=== PATIENT | male | born 1965 | race Hispanic/Latino ===

== ENCOUNTER 2018-02-02 16:59 | Inpatient (IN) | payer BC ==
[~2018-02-02] VITALS: Ht 185.4 cm; Wt 127.0 kg
[~2018-02-02 16:59] MED LIST: BYETTA5 MCG/0.02 SQ; CLONIDINE HCL0.1 MG PO; COUMADIN3 MG PO; HYDROCHLOROTHIA25 MG PO; LOSARTAN POTAS100 MG PO
--- OUTSIDE RECORDS SUMMARY | 2018-02-02 17:03 | XMS REPORT ---
Author Author [facility] Address Unknown Phone Unavailable Care Team Providers Care Health Support Specialist Name Role Phone REINALDO LEDBETTER Unavailable Unavailable Problems This patient has no known problems. Allergies, Adverse Reactions, Alerts This patient has no known allergies or adverse reactions. Medications This patient has no known medications. Results Test Description Test Time Test Comments Text Results Atomic Results Result Comments US RENAL RETROPERITONEAL COMP [place] [address] Patient Name: RENY LARSEN MR #: [id number] : 1965 Age/Sex: 51/M Req #: [id number] [facility] Physician: REINALDO LEDBETTER MD Ordered by: CUATE BORREGO MD Report #: [id number] Location: [facility] Room/Bed: [facility] Procedure: [id number] US/US RENAL RETROPERITONEAL COMP Exam Date: 12/31/16 Exam Time: 1435 REPORT STATUS: Signed PROCEDURE: US RETROPERITONEAL ( KIDNEY ). COMPARISON: None. INDICATIONS: DAVID TECHNIQUE: Montejo-scale and color sonographic images of the bilateral kidneys and bladder where obtained in transverse and longitudinal planes. FINDINGS: RIGHT KIDNEY: 12.4 x 6.2 x 6.2 cm, cortex 2.4 cm Cysts: None Solid masses: None Stones: None Hydronephrosis: None Echogenicity: Normal LEFT KIDNEY: 13.9 x 7.6 x 7.2 cm, cortex 3.2 cm Cysts: None Solid masses: None Stones: None Hydronephrosis: None Echogenicity: Normal Bladder: Normal CONCLUSION: Unremarkable renal ultrasound exam. Dictated by: Jamel Stovall M.D. on 12/31/2016 at 17:17 Electronically approved by: Jamel Stovall M.D. on 12/31/2016 at 17:17 Dictated By: JAMEL STOVALL MD 16 Transcribed By: NANDA on 12/31/161716 COPY TO: CUATE BORREGO MD MRI FOOT RIGHT WO [place] [address] Patient Name: RENY LARSEN MR #: [id number] : 1965 Age/Sex: 51/M Req #: [id number] Adm Physician: REINALDO LEDBETTER MD Ordered by: JULIANNA DALLAS DPZofia Report #: [id number] Location: [facility]/SURG2 Room/Bed: [facility] Procedure: [id number] MRI/MRI FOOT RIGHT WO Exam Date: 12/29/16 Exam Time: 1500 REPORT STATUS: Signed MRI of the right forefoot without contrast. History: Infection. Abscess. Ulcer. Decreased range of motion. Technique: Multiplanar multisequence MRI of the foot without contrast Comparison: None Findings: There is skin ulceration and skin thickening with abnormal soft tissue edema at the plantar aspect of the foot at the level of the distal first metatarsal. There is an ill-defined fluid collection the region best seen on series 3 image 17, series 8 image 6 and series 6 image 23. This is likely due to a phlegmon/early abscess. There is abnormal bone marrow edema in the underlying tibial sesamoid bone best seen on series 3 image 16 and series 8 image 19. There is a small effusion and mild synovitis at the first metatarsophalangeal joint. There is mild bone marrow edema in the proximal great toe best seen on series 8 image 10. Scattered degenerative changes are seen about the remaining visualized osseous structures. There is mild diffuse edema throughout the musculature. No ligamentous or tendon tear is seen. Impression: Findings consistent with skin ulceration, cellulitis and likely phlegmon/developing abscess at the plantar aspect of the foot at the level of the distal first metatarsal. There is abnormal bone marrow edema in the tibial sesamoid bone worrisome for early osteomyelitis. Additionally, there is a small effusion and synovitis at the first metatarsophalangeal joint which could be due to early septic arthritis. There is mild bone marrow edema in the proximal great toe which is thought to be stress related. Signed by: Dr. Shima Purcell M.D. on 12/29/2016 4:01 PM Dictated By: SHIMA PURCELL MD, MD 1601 Transcribed By: HARPREET on 12/29/16 1601 COPY TO: JULIANNA DALLAS DPZofia BONE SCAN, 3 PHASE [place] [address] Patient Name: RENY LARSEN MR #: [id number] : 1965 Age/Sex: 51/M Req #: [id number] Adm Physician: REINALDO LEDBETTER MD Ordered by: LUIS FERNANDO NEAL MD Report #: [id number] Location: MED/SURG2 Room/Bed: [facility] Procedure: [id number] NM/BONE SCAN, 3 PHASE Exam Date: 12/29/16 Exam Time: 1100 REPORT STATUS: Signed Bone Scan, three-phase - feet and ankles Reason for exam: 2-3 weeks ago blister formed on bottom of right foot near ball of foot and is now infected. Patient is diabetic. Radiopharmaceutical: Tc- 99m MDP 26.7 mCi Comparison: MRI right foot 12/29/2016 Following intravenous administration of the radiopharmaceutical, dynamic flow and immediate blood pool images of the feet and ankles followed by 3-hour delayed spot images were obtained. Flow and blood pool images show diffuse markedly increased tracer in the right foot and ankle compared to the left with focal accumulation of tracer at the right 1st metatarsal head. The delayed images show diffuse mildly increased tracer in the soft tissue of the right foot compared to the left with few scattered foci of mildly increased tracer activity in the feet bilaterally consistent with degenerative changes but no focal increased tracer in the right great toe or right 1st metatarsal. Impression: Cellulitis in the right foot. No evidence of osteomyelitis in the right great toe or right 1st metatarsal. Signed by: Dr. Chris Feldman M.D. on 12/29/2016 7:01 PM Dictated By: CHRIS FELDMAN MD 00 Transcribed By: HARPREET on 12/29/161900 COPY TO: LUIS FERNANDO NEAL MD [facility] ([place] [address] Patient Name: RENY LARSEN MR #: [id number] : 1965 Age/Sex: 51/M Req #: [id number] Adm Physician: Ordered by: MONICO STEVEN Report #: [id number] Location: ER Room/Bed: Procedure: [id number] DX/CHEST SINGLE (PORTABLE) Exam Date: 12/28/16 Exam Time: 1245 REPORT STATUS: Signed PROCEDURE: A single AP view of the chest. COMPARISON: None. INDICATIONS: INFECTION OF FOOT FINDINGS: Lines/tubes: None. Lungs: The lungs are mildly hypo-inflated, but grossly clear. There is no evidence of pneumonia or pulmonary edema. Pleura: There is no pleural effusion or pneumothorax. Heart and mediastinum: The heart and the mediastinum are unremarkable. Bones: No acute bony abnormality. IMPRESSION: 1. No acute cardiopulmonary abnormalities Nakia Scott M.D. Dictated by: Nakia Scott M.D. on 12/28/2016 at 13:18 Electronically approved by: Nakia Scott M.D. on 12/28/2016 at 13:18 Dictated By: NAKIA SCOTT MD 131 Transcribed By: NANDA on 12/28/16 1318 COPY TO: MONICO STEVEN FOOT RIGHT COMPLETE [place] [address] Patient Name: RENY LARSEN MR #: [id number] : 1965 Age/Sex: 51/M Req #: [id number] Adm Physician: Ordered by: MONICO STEVEN Report #: [id number] Location: ER Room/Bed: Procedure: [id number] DX/FOOT RIGHT COMPLETE Exam Date: 12/28/16 Exam Time: 1245 REPORT STATUS: Signed PROCEDURE: X-RAY RIGHT FOOT, COMPLETE COMPARISON: None. INDICATIONS: INFECTION OF FOOT , right first toe wound, swelling, drainage FINDINGS: Mild osteopenia, which limits evaluation of bony structures. No cortical erosion or destruction. No acute displaced fracture or dislocation. Large inferior calcaneal enthesophyte. Degenerative changes in the hindfoot/midfoot joints. Mild soft tissue swelling in the first toe and dorsal aspect of the foot. No soft tissue defect identified CONCLUSION: Soft tissue swelling in the dorsal aspect of the foot and first toe, without soft tissue defect or underlying cortical erosion or destruction to suggest osteomyelitis. Nakia Scott M.D. Dictated by: Nakia Scott M.D. on 12/28/2016 at 13:23 Electronical ly approved by: Nakia Scott M.D. on 12/28/2016 at 13:44 Dictated By: NAKIA SCOTT MD 1344 Transcribed By: NANDA on 12/28/16 1344 COPY TO: MONICO STEVEN
[2018-02-02] MEDS ORDERED: VANCOMYCIN 1GM/NS 250 ML 250 ML IV STA (17:32)
[2018-02-02 17:48] LABS: BASOPHILS # (AUTO) 0.1 (0.0-0.1); BASOPHILS % 0.4 % (0.0-1.0); EOSINOPHILS # (AUTO) 0.6 (0.0-0.4); EOSINOPHILS % 4.9 % (0.0-6.0); HEMATOCRIT 36.2 % (38.2-49.6); HEMOGLOBIN 11.8 g/dL (14.0-18.0); LYMPHOCYTES # (AUTO) 1.7 (1.0-3.2); MEAN CORPUSCULAR HEMOGLOBIN 28.4 pg (28-32); MEAN CORPUSCULAR HGB CONC 32.6 g/dL (31-35); MONOCYTES # (AUTO) 0.6 (0.2-0.8); MONOCYTES % 4.8 % (4.4-11.3); NEUTROPHILS # (AUTO) 9.1 (2.1-6.9); NEUTROPHILS % 75.3 % (38.7-80.0); PLATELET COUNT 497 x10e3/uL (140-360); RED BLOOD COUNT 4.16 x10e6/uL (4.3-5.7); RED CELL DISTRIBUTION WIDTH 12.6 % (11.7-14.4)
[2018-02-02 17:55] LABS: INR 0.99
[2018-02-02 17:56] LABS: PARTIAL THROMBOPLASTIN TIME 37.7 seconds (23.8-35.5)
[2018-02-02 18:05] LABS: ALANINE AMINOTRANSFERASE 53 IU/L (0-55); ALBUMIN 2.6 g/dL (3.5-5.0); ALBUMIN/GLOBULIN RATIO 0.5 (0.8-2.0); ALKALINE PHOSPHATASE 104 IU/L (40-150); ANION GAP 13.1 mmol/L (8-16); BLOOD UREA NITROGEN 25 mg/dL (7-26); BUN/CREATININE RATIO 29 (6-25); CALCIUM 9.3 mg/dL (8.4-10.2); CARBON DIOXIDE 24 mmol/L (22-29); CHLORIDE 103 mmol/L (98-107); CREATININE, SERUM 0.87 mg/dL (0.72-1.25); EST GLOMERULAR FILTRATION RATE > 60 ML/MIN (60-); GLUCOSE 191 mg/dL (74-118); POTASSIUM 4.1 mmol/L (3.5-5.1); SODIUM 136 mmol/L (136-145)
--- NOTE | 2018-02-02 19:05 | Diagnostic Imaging Report ---
RIGHT FOOT X-RAY - 3 VIEWS HISTORY: ^Rule out osteomyelitis ^[id number] ^1805 COMPARISON: None available. FINDINGS: Bones: No acute displaced fracture. Osseous alignment is within normal limits. Joints: Mild to moderate degenerative changes throughout the foot. Mild cortical irregularity within the medial aspect of the distal right first metatarsal. Calcaneal enthesopathy within the plantar aspect of the calcaneus with age-indeterminate fracture of the osteophyte. Soft tissues: Soft tissue swelling along the right first digit. IMPRESSION: Soft tissue swelling along the first digit with mild cortical erosion of the distal first metatarsal. This may represent osteomyelitis. Consider MRI right foot with and without contrast. Signed by: Dr. Skye Dietrich M.D. on 02/02/2018 7:02 PM
[2018-02-02] MEDS ORDERED: CLONIDINE HCL 0.1 MG TAB PO ONE (19:15)
[2018-02-02 19:19] LABS: BILIRUBIN,URINE NEGATIVE (NEGATIVE); CLARITY,URINE CLEAR (CLEAR); COLOR,URINE YELLOW (YELLOW); KETONES,URINE NEGATIVE (NEGATIVE); LEUKOCYTE ESTERASE ,URINE NEGATIVE (NEGATIVE); NITRITE,URINE NEGATIVE (NEGATIVE); PROTEIN,URINE DIPSTICK 2+ (NEGATIVE); URINE UROBILINOGEN 0.2 mg/dL (0.2 - 1)
--- NOTE | 2018-02-02 19:23 | NUR ---
RECEIVED BEDSIDE REPORT FROM AUGUST QUIROZ DAY SHIFT NURSE.
[2018-02-02 19:38] LABS: BACTERIA,URINE MODERATE /HPF; EPITHELIAL CELLS,URINE FEW /LPF; RBC,URINE 21-50 /HPF (0-5); WBC,URINE (MAN) 0-5 /HPF (0-5)
[2018-02-02] MEDS ORDERED: DEXTROSE 50% SYRINGE 50 ML IV PRN (20:45)
[2018-02-02] MEDS ORDERED: PIPER-TAZ 3.375 GM 50 ML IV SCH (21:00)
[2018-02-02] MEDS ORDERED: ATORVASTATIN CA10 MG PO (21:13)
[2018-02-02] MEDS: INSULIN REGULAR, HUMAN 100 UNIT/1 ML 3ML VIAL SQ SCH (21:25)
[2018-02-02] MEDS ORDERED: CLONIDINE HCL 0.1 MG TAB PO SCH (22:00)
--- NOTE | 2018-02-02 22:10 | NUR ---
MEAL GIVEN TO PT.
[2018-02-02] MEDS ORDERED: PROMETHAZINE 12.5MG/ NACL 0.9% 12.5 MG/50 ML BAG IV ONE (22:45)
[2018-02-03] MEDS ORDERED: DEXTROSE 50% SYRINGE 50 ML IV PRN
--- NOTE | 2018-02-03 01:35 | NUR ---
PLACE PT IN HOSPITAL BED. BED IS LOCKED AND IN LOW POSITION, SIDE RAILS ARE UP. CALL LIGHT IS IN REACH. NO DISTRESS NOTED.
[2018-02-03] MEDS ORDERED: TOUJEO SOLOSTAR SC (03:51)
[2018-02-03] MEDS ORDERED: NOVOLOG100 UNITS1 SQ (03:51)
[2018-02-03] MEDS ORDERED: VICTOZA 2-0.6 MG/0.1 SQ (03:51)
--- NOTE | 2018-02-03 06:16 | History and Physical ---
REASON FOR ADMISSION: Right foot osteomyelitis. HISTORY OF PRESENT ILLNESS: The patient is a 52-year-old gentleman with history of diabetes and hypertension, who presented with right foot infection that on the x-ray shows to have evidence of osteomyelitis. He is being admitted for further evaluation and treatment. PAST MEDICAL HISTORY: Significant for hypertension and diabetes. MEDICATIONS: See MAR. ALLERGIES: NONE. SOCIAL HISTORY: Nonsmoker, nondrinker. FAMILY HISTORY: Hypertension. PHYSICAL EXAMINATION VITAL SIGNS: Temperature 98.6, blood pressure 136/74, pulse 74, saturation 96% on room air. GENERAL: In no apparent distress, lying in bed. NECK: Supple. No lymphadenopathy. LUNGS: Clear to auscultation bilaterally. CARDIOVASCULAR: Regular rate and rhythm. ABDOMEN: Good bowel sounds, soft, nontender. EXTREMITIES: No clubbing or cyanosis. Right foot has got evidence of redness around the toe area. NEUROLOGICAL: Nonfocal. ASSESSMENT AND PLAN 1. Right foot osteomyelitis. We will continue with intravenous antibiotics and consult Dr. Frankel as well as Dr. Gannon, his beauty operator. 2. Diabetes. Continue with current care and monitoring. 3. Hypertension. Continue with current care and monitoring. 4. Leukocytosis. Continue to monitor her. Please see hospital chart for full details. Job#: [id number] DONNELL
[2018-02-03] MEDS ORDERED: HYDRALAZINE HCL 20 MG/ML VIAL IV PRN (07:00)
--- NOTE | 2018-02-03 07:05 | NUR ---
REPORT GIVEN TO AUGUST SR DAY SHIFT NURSE.
--- NOTE | 2018-02-03 07:10 | NUR ---
WALKING ROUNDS COMPLETED WITH AUGUST SCHWARTZ; PT UPDATED ON PLAN OF CARE. PT CURRENTLY RESTING IN BED AT THIS TIME WITH NO COMPLAINTS ;BED LOW AND LOCKED, SIDE RAILS UP X2, CALL LIGHT IN REACH; WILL CONTINUE TO MONITOR
[2018-02-03] MEDS: INSULIN REGULAR, HUMAN 100 UNIT/1 ML 3ML VIAL SQ SCH ×4 (07:47→21:00)
[2018-02-03] MEDS: INSULIN LISPRO 100 UNIT/1 ML 3ML VIAL SQ SCH ×3 (08:45→17:27)
[2018-02-03] MEDS: PIPER-TAZ 3.375 GM 50 ML IV SCH ×3 (08:51→18:00)
[2018-02-03] MEDS: ATORVASTATIN 10 MG TAB PO SCH ×2 (08:51→21:52)
[2018-02-03] MEDS: HYDROCHLOROTHIAZIDE 25 MG TAB PO SCH (08:51)
[2018-02-03] MEDS: LOSARTAN POTASSIUM 100 MG TAB PO SCH (08:51)
[2018-02-03] MEDS: CLONIDINE HCL 0.1 MG TAB PO SCH ×2 (08:51→21:52)
--- NOTE | 2018-02-03 08:53 | NUR ---
CALLED PHARMACY FOR JOSE M HOUSER
[2018-02-03] MEDS: VANCOMYCIN 1GM/NS 250 ML 250 ML IV SCH ×2 (09:50→20:00)
[2018-02-03] MEDS: EXENATIDE SQ SCH (12:31)
--- NOTE | 2018-02-03 12:40 | NUR ---
pt transported to by radiology for mri of foot
--- NOTE | 2018-02-03 13:09 | Consultation ---
DATE OF CONSULTATION: February 03, 2018 PODIATRY CONSULTATION REASON FOR CONSULTATION: Right foot infection. HISTORY OF PRESENT ILLNESS: Mr. Bustillos is a pleasant male, 52 years of age, with unfortunate recurrence of diabetic foot complication. He had in the past significant right foot infection which led to OR debridement and substantial long-term wound care, which ultimately led to wound healing. Unfortunately recently, within the past several weeks, has developed a secondary lesion adjacent to the previous infection site, which within the past 2 weeks got infected. Tried p.o. antibiotics. Tried local wound care. Educated on offloading, which he was unsuccessful in doing, and subsequently due to worsening at this point, I recommended him to present to the ED for further evaluation and inpatient management. PAST MEDICAL HISTORY 1. Diabetes, diabetic peripheral neuropathy. 2. Osteomyelitis. 3. Diabetic foot complications. ALLERGIES: NO KNOWN DRUG ALLERGIES. MEDICATIONS: Please see MAR for current medication list. FAMILY HISTORY: Noncontributory. SOCIAL HISTORY: Noncontributory. SURGICAL HISTORY: Right foot OR debridement. PHYSICAL EXAMINATION GENERAL: AO x3, NAD. VITAL SIGNS: 98.4 temperature, pulse is 66, respiratory rate 18, blood pressure is 116/68. HEENT: Normocephalic, atraumatic, anicteric. ABDOMEN: Soft, nontender, nondistended. RESPIRATORY: Symmetrical expansion. No distress. PSYCHIATRIC: Normal affect. EXTREMITIES: Significant erythema, edema to the right foot. Forefoot particularly involved. He has contracted digits, has prominent ball of foot consistent with plantarflexed metatarsal heads. X-rays reveal osteomyelitis. LABORATORY DATA: He is leukocytotic. Hemoglobin A1c ordered. ASSESSMENT: Diabetic patient, diabetic peripheral neuropathy with diabetic foot infection, diabetic ulceration, and diabetic foot complications. PLAN: Further workup necessary. Need MRI. Needs IV antibiotics. Needs local wound care. Needs offloading. Further recommendations to follow. At risk patient for perhaps needing transmetatarsal amputation, pending clinical course. I would like to thank Dr. Hull for medical management and other consultants. Job#: [id number] SUNIL
--- NOTE | 2018-02-03 14:22 | Diagnostic Imaging Report ---
TECHNIQUE: Magnetic resonance imaging of the RIGHT foot was performed WITHOUT injected contrast. HISTORY: Right foot pain, evaluate for infection COMPARISON: None available. DISCUSSION: Soft tissue ulceration plantar forefoot with sinus tract extending to the second metatarsal head with septic arthritis of the second MTP joint and osteomyelitis of the second metatarsal and phalanges. Soft tissue ulceration plantar forefoot with sinus tract extending to the proximal phalanx of the hallux with septic arthritis of the first MTP joint and osteomyelitis of the first metatarsal and proximal phalanx. Adjacent medial plantar forefoot soft tissue phlegmon/ill-defined abscess. Bone marrow edema within the third through fifth metatarsals, likely stress reaction with insufficiency fracture across the fourth metatarsal base. IMPRESSION: Soft tissue ulceration and sinus tracts extending to the first and second MTP joints with septic arthritis and osteomyelitis of the first and second metatarsals and phalanges. Third through fifth metatarsal bone marrow edema with insufficiency fracture at the fourth metatarsal base. Signed by: Dr. Frederick Montana M.D. on 02/03/2018 2:19 PM
[2018-02-03] MEDS ORDERED: CEFEPIME HCL 2 GM VIAL IV SCH (15:45)
[2018-02-03] MEDS: CEFEPIME 2 GM/NS 0.9% 100 ML 100 ML IV SCH (16:09)
--- NOTE | 2018-02-03 16:10 | Consultation ---
DATE OF CONSULTATION: REASON FOR CONSULTATION: Infection of the right foot, osteomyelitis. HISTORY OF PRESENT ILLNESS: This patient who is a 52-year-old male with history of diabetes mellitus, history of hypertension, history of neuropathy, Charcot joint, comes in with right foot redness and swelling. He has been seeing his physician. Took some more antibiotic as an outpatient without any improvement. The patient had debridement, long-term wound care before. The patient, in spite of oral antibiotic, his foot was getting progressively worse. X-ray documented osteo so patient is being admitted for debridement. Infectious disease was asked to see the patient. The patient is currently lying in bed comfortably. PAST MEDICAL HISTORY: Diabetes mellitus, neuropathy. PAST SURGICAL HISTORY: Debridement of the foot. ALLERGIES: NKA. SOCIAL HISTORY: There is no smoking, drug abuse, alcohol abuse. FAMILY HISTORY: Diabetes mellitus. REVIEW OF SYSTEMS HEENT: Negative. CARDIAC: Negative. : Negative. SKIN: There is no other rash. LABORATORY DATA: White count 12.6, hemoglobin 11.8. Sodium 136, potassium 4.1, creatinine 0.87, albumin 2.6. The patient on vancomycin. His MRI of the foot shows soft tissue swelling. There is sinus tract extending into the 1st and 2nd MTP with septic joint, osteomyelitis of the 1st and the 2nd metatarsal and phalanges. This 3rd and the 5th metatarsal bones showed edema with fracture at the 1st metatarsal base. PHYSICAL EXAMINATION: GENERAL: He is currently alert, oriented, does not seem to be in acute distress. VITALS: Stable, currently afebrile. HEENT: He does not appear icteric. NECK: Supple. CHEST: Clear. HEART: S1, S2. No murmur. ABDOMEN: Soft. EXTREMITIES: In the foot, there is edema, there is erythema, there is deformity noted as mentioned above. IMPRESSION: Osteomyelitis of the foot in a patient with obesity, diabetes mellitus. Agree with vancomycin. Will add cefepime. Would get sed rate, C-reactive protein. Would need surgical debridement and to send intraoperative cultures. Will need a peripherally inserted central catheter line for intravenous antibiotic. Will follow with you. Job#: [id number] SUNIL
[2018-02-03] MEDS: HYDROCODONE/APAP 10MG-325MG TAB PO PRN ×2 (16:25→22:25)
--- NOTE | 2018-02-03 18:01 | NUR ---
RCD PT FROM ER BY BED PT IS ALERT AND ORIENTED VITALS CHECKED PT RESTING ON BED BED LOW AND LOCKED A/C TO THE ER NURSE THEY GIVEN THE VANCOMYCIN AND THE RADIOLOGY PEOPLE AWARE ABOUT THE PICC LINE BED LOW AND LOCKED CALL LIGHT IN REACH
[2018-02-03] MEDS ORDERED: SODIUM CHLORIDE 0.9% 250ML 250 ML ONE (18:36)
[2018-02-03 18:38] VITALS: BP 178/79
--- NOTE | 2018-02-03 18:54 | NUR ---
PT RESTING ON BED BED SIDE REPORT GIVEN TO ONCOMING NURSE
[2018-02-03 20:10] VITALS: BP 158/76
[2018-02-03 20:14] VITALS: BP 158/76
[2018-02-03 20:24] VITALS: BP 158/76
--- NOTE | 2018-02-03 20:34 | NUR ---
RECEIVED PT IN BED AOX3 .RESPIRATIONS ARE EVEN AND UNLABORED .RT FOOT CELLULITIS WIT DRESSING .DENIES PAIN SKIN WARM AND DRY TO TOUCH ..FAMILY AT THE BEDSIDE ADMISSION ASSESSMENT DONE .CALL LIGHT WITH IN REACH .CONTINUE TP MONITOR
--- NOTE | 2018-02-03 21:49 | Diagnostic Imaging Report ---
EXAMINATION: CHEST XRAY LINE PLACEMENT INDICATION: line placement COMPARISON: None FINDINGS: AP view TUBES and LINES: Left upper extremity PICC tip overlies the SVC. LUNGS: Lungs are moderately inflated. Central pulmonary venous congestion with bibasilar atelectasis. PLEURA: No pleural effusion or pneumothorax. HEART AND MEDIASTINUM: Accentuated by AP technique and lung volumes. BONES AND SOFT TISSUES: No acute osseous lesion. Soft tissues are unremarkable. UPPER ABDOMEN: No free air under the diaphragm. IMPRESSION: Left upper extremity PICC tip overlies the SVC. Signed by: DR. Jamel Owens MD on 02/03/2018 9:46 PM
[2018-02-03 23:41] VITALS: BP 130/60
[2018-02-04] VITALS (7 sets, daily range): BP systolic 134–156; BP diastolic 63–76
--- NOTE | 2018-02-04 03:38 | NUR ---
PICC LINE INSERTED AT LEFT UPPER ARM BY NARCISA AT 2019 .PICC LINE IS READY TO USE .ABT ARE INFUSED THROUGH PICC LINE .DRESSING AT RT FOOT CHANGED
[2018-02-04] MEDS: CEFEPIME 2 GM/NS 0.9% 100 ML 100 ML IV SCH ×2 (04:17→15:40)
[2018-02-04] MEDS: PIPER-TAZ 3.375 GM 50 ML IV SCH ×2 (05:49)
[2018-02-04] MEDS: HYDROCODONE/APAP 10MG-325MG TAB PO PRN ×3 (05:49→21:49)
--- NOTE | 2018-02-04 06:11 | NUR ---
PT C/O PAIN .GIVEN ORDERED PAIN MEDICATION .PT RESTING CALL LIGHT WITH IN REACH.CONTINUE TO MONITOR
--- NOTE | 2018-02-04 07:16 | NUR ---
REPORT GIVEN TO THE ONCOMING NURSE.
--- NOTE | 2018-02-04 07:23 | NUR ---
RECEIVED PATIENT LYING IN BED ALERT AND ORIENTED.
--- NOTE | 2018-02-04 08:00 | NUR ---
CALL RECEIVED FROM PHARMACY. JOSE M HOUSER MEDICATION IS NOT AVAILABLE AT THIS TIME AND IS COMING ON TUESDAY. NOTIFY
--- NOTE | 2018-02-04 08:07 | Progress Note ---
DATE: SUBJECTIVE: A 52-year-old gentleman with right foot infection comes in. Patient is currently afebrile. No complaints. Pain is controlled. OBJECTIVE VITAL SIGNS: Temperature is 96.5, pulse of 76, respirations of 18, blood pressure is 134/63, and pulse oximetry 97%. GENERAL: Patient is alert and oriented x3. CVS: S1 and S2 normal. Regular rate and rhythm. ABDOMEN: Nontender, nondistended. LUNGS: Clear to auscultation bilaterally. EXTREMITIES: Left lower extremity is normal. Right lower extremity bandaged and good peripheral pulses in the right lower extremity. MICROBIOLOGY VALUES: Blood cultures have been no growth for the last 24 hours. Wound cultures, gram-positive rods and cocci in pairs. LABORATORY VALUES: White count initially was 12,000, has not been repeated; hemoglobin is 11.8; and hematocrit of 36.2. Glucose has been trending normal at 97, 96, 117, and 113. A1c was 7.6. Urine did show rbc's 21-50 and bacteria in the urine. We will go ahead and culture his urine too. MEDICATIONS: Patient is currently on Zosyn and cefepime for infection control and he is on atorvastatin for hyperlipidemia. Patient is also on vancomycin. For blood pressure, he is on hydrochlorothiazide and for sliding scale, he is on Humalog. IMPRESSION AND PLAN: Patient continues to do well. We will continue with the antibiotics. Dr. Gannon is on consult and Dr. Frankel is in consult. FINAL DIAGNOSES 1. Cellulitis and osteomyelitis of the right lower extremity. 2. Diabetes mellitus. 3. Hypertension. 4. Hyperlipidemia. For further information, look in the chart. Job#: [id number] CELSA
[2018-02-04] MEDS: HYDROCHLOROTHIAZIDE 25 MG TAB PO SCH (08:54)
[2018-02-04] MEDS: LOSARTAN POTASSIUM 100 MG TAB PO SCH (08:54)
[2018-02-04] MEDS: CLONIDINE HCL 0.1 MG TAB PO SCH ×2 (08:54→21:44)
[2018-02-04] MEDS: EXENATIDE SQ SCH (09:00)
[2018-02-04] MEDS: VANCOMYCIN 1GM/NS 250 ML 250 ML IV SCH ×2 (10:00→21:44)
[2018-02-04] MEDS: INSULIN REGULAR, HUMAN 100 UNIT/1 ML 3ML VIAL SQ SCH ×4 (10:09→21:00)
[2018-02-04] MEDS: INSULIN LISPRO 100 UNIT/1 ML 3ML VIAL SQ SCH ×3 (10:09→16:49)
--- NOTE | 2018-02-04 10:52 | NUR ---
Hair Stylist to bedside to discuss plan of care with patient/family. CM/SW role and care transitions discussed. Anticipated discharge plan discussed along with duration of care. CM/SW discussed patients right to make decisions in care. CM/SW work hours given. Patient lives: with and kids Admit/Transfer: thru ED, referred by Dr. Teressa WATSON/Emergency contact: Cadence Bustillos at [phone] Current/Previous Home Health: none PCP/Follow-up Care: pt does not remember name of his PCP, follows Dr. Gannon for podiatry Current/Previous DME: currently uses crutches, but normally does not use any DME Other Services: none Employment Status: employed Areas of Concerns: foot wound Referral Needs: may need penitentiary iv abx Education Needs: wound care, iv abx IMM/SANDERS given and signed (if applicable): n/a Goal for discharge: pt would like to go home, wants to do abx at home if needed. will provide transportation CM/SW left business card at the bedside with contact information. Name and number was also written on the patients whiteboard. Patient verbalized understanding of discussion. CM will follow-up with ongoing discharge and transition of care needs.
--- NOTE | 2018-02-04 18:43 | NUR ---
PATIENT LYING ON BED. ENDORSED TO INCOMING NURSE ON DUTY.
--- NOTE | 2018-02-04 19:13 | Progress Note ---
DATE: February 04, 2018 SUBJECTIVE: No new complaints. Does admit that edema to the foot has decreased. Admits that dressings at this point have been only dry dressings, however. PHYSICAL EXAMINATION VITAL SIGNS: Stable. He is afebrile. GENERAL: In no apparent distress. HEENT: Normocephalic, atraumatic, anicteric. ABDOMEN: Soft, nontender, nondistended. RESPIRATORY: Symmetrical expansion. PSYCHIATRIC: Normal affect. EXTREMITIES: Significant decrease in erythema and edema to the foot is appreciated. No active drainage. It appears to be responding well to current treatment, although needing dressings albeit medication particularly. I am at this point recommending Betadine, wet-to-dry. ASSESSMENT: Diabetic foot infection, cellulitis, edema, and osteomyelitis. PLAN: Proceed with current recommendations, offloading local wound care. Recommend Betadine wet-to-dry and we will continue to follow and monitor. Job#: [id number] JOANN
[2018-02-04] MEDS: ATORVASTATIN 10 MG TAB PO SCH (21:44)
[2018-02-05] VITALS (7 sets, daily range): BP systolic 132–167; BP diastolic 61–79
[2018-02-05] MEDS: HYDROCODONE/APAP 10MG-325MG TAB PO PRN ×4 (02:20→20:15)
[2018-02-05] MEDS: CEFEPIME 2 GM/NS 0.9% 100 ML 100 ML IV SCH ×2 (04:09→15:45)
--- NOTE | 2018-02-05 07:50 | NUR ---
RECEIVED PATIENT IN BED. NO COMPLAINTS. ALERT AND VERBAL.
--- NOTE | 2018-02-05 08:27 | Progress Note ---
DATE: SUBJECTIVE: Patient is here for osteomyelitis of the foot and cellulitis of the foot. The patient is alert and oriented x3. No complaints. Control of pain is adequate. OBJECTIVE GENERAL: The patient is alert and oriented x3. VITAL SIGNS: Temperature is 98.0, blood pressure 140/65, pulse oximetry 94% on room air. HEENT: Normocephalic, atraumatic. Pupils are reactive to light and accommodation. CVS: S1 and S2 are normal. Regular rate and rhythm. ABDOMEN: Nontender and nondistended. EXTREMITIES: Left lower extremity is normal. Right lower extremity is bandaged. Good pulses felt. LABORATORY VALUES: None done today. Chemistries; blood sugars have been running in the 90s to 150 range. ASSESSMENT 1. Diabetic foot infection. 2. Cellulitis. 3. Osteomyelitis. 4. Hypertension. 5. Hyperlipidemia. PLAN: Plan is to continue on his medication. The patient is currently on Cefepime and vancomycin. We will continue those two. Vancomycin troughs will be done. For his HDL, we will continue on his atorvastatin. The patient is a diabetic. We will continue on his sliding scale and also continue on blood pressure monitoring and treatment with hydralazine as needed. Job#: [id number] JOSE ROBERTO
[2018-02-05] MEDS: EXENATIDE SQ SCH (09:00)
[2018-02-05] MEDS: INSULIN REGULAR, HUMAN 100 UNIT/1 ML 3ML VIAL SQ SCH ×4 (09:33→20:15)
[2018-02-05] MEDS: INSULIN LISPRO 100 UNIT/1 ML 3ML VIAL SQ SCH ×3 (09:33→17:00)
[2018-02-05] MEDS: VANCOMYCIN 1GM/NS 250 ML 250 ML IV SCH ×2 (09:33→21:32)
[2018-02-05] MEDS: HYDROCHLOROTHIAZIDE 25 MG TAB PO SCH (09:34)
[2018-02-05] MEDS: CLONIDINE HCL 0.1 MG TAB PO SCH ×2 (09:34→20:15)
[2018-02-05] MEDS: LOSARTAN POTASSIUM 100 MG TAB PO SCH (09:34)
--- NOTE | 2018-02-05 14:30 | NUR ---
DRESSING CHANGED TO RIGHT FOOT. NO DRAINAGE, FOUL ODOR OR BLEEDING NOTED.
--- NOTE | 2018-02-05 14:59 | NUR ---
ACCORDING TO PHARMACIST JOSE M HOUSER IS NOT AVAILABLE. TELL THE PATIENT TO BRING THE MEDICATION FROM HOME. TALKED TO THE PATIENT AND AGREED TO BRING THE MEDICINE.
[2018-02-05] MEDS: ATORVASTATIN 10 MG TAB PO SCH (20:15)
[2018-02-06] VITALS (7 sets, daily range): BP systolic 123–185; BP diastolic 68–88
[2018-02-06] MEDS: HYDROCODONE/APAP 10MG-325MG TAB PO PRN ×3 (00:21→19:16)
[2018-02-06] MEDS: CEFEPIME 2 GM/NS 0.9% 100 ML 100 ML IV SCH ×2 (03:25→15:43)
[2018-02-06 06:45] LABS: BASOPHILS # (AUTO) 0.1 (0.0-0.1); BASOPHILS % 0.8 % (0.0-1.0); EOSINOPHILS # (AUTO) 0.6 (0.0-0.4); HEMATOCRIT 37.3 % (38.2-49.6); HEMOGLOBIN 11.9 g/dL (14.0-18.0); LYMPHOCYTES # (AUTO) 2.1 (1.0-3.2); MEAN CORPUSCULAR HGB CONC 31.9 g/dL (31-35); MEAN CORPUSCULAR VOLUME 87.8 fL (81-99); MONOCYTES # (AUTO) 0.4 (0.2-0.8); MONOCYTES % 5.7 % (4.4-11.3); NEUTROPHILS # (AUTO) 4.5 (2.1-6.9); PLATELET COUNT 512 x10e3/uL (140-360); RED BLOOD COUNT 4.25 x10e6/uL (4.3-5.7); RED CELL DISTRIBUTION WIDTH 12.5 % (11.7-14.4)
[2018-02-06 07:02] LABS: ALANINE AMINOTRANSFERASE 39 IU/L (0-55); ALBUMIN 2.5 g/dL (3.5-5.0); ALBUMIN/GLOBULIN RATIO 0.5 (0.8-2.0); ALKALINE PHOSPHATASE 93 IU/L (40-150); ANION GAP 12.6 mmol/L (8-16); BLOOD UREA NITROGEN 20 mg/dL (7-26); BUN/CREATININE RATIO 22 (6-25); CARBON DIOXIDE 25 mmol/L (22-29); CHLORIDE 105 mmol/L (98-107); CREATININE, SERUM 0.92 mg/dL (0.72-1.25); EST GLOMERULAR FILTRATION RATE > 60 ML/MIN (60-); GLUCOSE 209 mg/dL (74-118); POTASSIUM 4.6 mmol/L (3.5-5.1); SODIUM 138 mmol/L (136-145)
[2018-02-06] MEDS: INSULIN REGULAR, HUMAN 100 UNIT/1 ML 3ML VIAL SQ SCH ×4 (08:30→21:09)
[2018-02-06] MEDS: INSULIN LISPRO 100 UNIT/1 ML 3ML VIAL SQ SCH ×3 (08:30→18:41)
[2018-02-06] MEDS: EXENATIDE SQ SCH (09:00)
[2018-02-06] MEDS ORDERED: SODIUM CHLORIDE 0.9% 250ML 250 ML ONE (09:17)
[2018-02-06] MEDS: VANCOMYCIN 1GM/NS 250 ML 250 ML IV SCH ×2 (09:27→21:08)
[2018-02-06] MEDS: LOSARTAN POTASSIUM 100 MG TAB PO SCH (09:27)
[2018-02-06] MEDS: HYDROCHLOROTHIAZIDE 25 MG TAB PO SCH (09:27)
[2018-02-06] MEDS: CLONIDINE HCL 0.1 MG TAB PO SCH ×2 (09:27→21:09)
--- NOTE | 2018-02-06 13:22 | Progress Note ---
DATE: February 06, 2018 SUBJECTIVE: No new complaints. Does admit that the erythema and edema to the foot have decreased. MRI has been performed. PHYSICAL EXAMINATION VITAL SIGNS: Stable. He is afebrile. GENERAL: A and O x3, NAD. HEENT: Normocephalic, atraumatic, anicteric. ABDOMEN: Soft, nontender, nondistended. RESPIRATORY: Symmetrical expansion. PSYCHIATRIC: Normal affect. EXTREMITIES: Drainage associated to the right foot has what appears to be 2 distinct drainage sites, 1 to the lesion associated to the plantar aspect of the 2nd metatarsal head. The 2nd lesion is along the 2nd digital sulcus. Appears that the same communicate with each other. MRI of the right foot is confirming the presence of what appears to be septic arthrosis to both the 1st and 2nd metatarsophalangeal joints consistent with direct inoculation secondary to chronic, nonhealing ulceration particularly to the 2nd metatarsal head area. ASSESSMENT: Diabetic ulceration with diabetic foot complications, diabetic peripheral neuropathy, and septic arthrosis. PLAN: Proceed with IV antibiotics, nonweightbearing, local wound care. Add also 1/4-inch iodoform packing to these areas. Will continue to follow and monitor. Job#: [id number]
--- NOTE | 2018-02-06 13:41 | Diagnostic Imaging Report ---
EXAM: KNEE LEFT THREE VIEWS DATE: 02/06/2018 12:17 PM INDICATION: Pain COMPARISON: None FINDINGS: Minimal osteophytosis. No fracture or subluxation identified. No joint effusion is identified. IMPRESSION: No acute findings. Signed by: Dr. Emanuel Paredes MD on 02/06/2018 1:38 PM
--- NOTE | 2018-02-06 19:10 | NUR ---
Received patient awake on bed, with dressing to the right foot intact. Call light within reached, advised to call for assistance when needed. Dayshift gave pain med, pain level 6/10 of the right foot.Will continue to monitor.
[2018-02-06] MEDS: ATORVASTATIN 10 MG TAB PO SCH (21:09)
[2018-02-07] VITALS (8 sets, daily range): BP systolic 150–180; BP diastolic 70–83
[2018-02-07] MEDS: CEFEPIME 2 GM/NS 0.9% 100 ML 100 ML IV SCH ×2 (03:28→15:47)
[2018-02-07] MEDS: HYDROCODONE/APAP 10MG-325MG TAB PO PRN ×6 (04:58→20:28)
[2018-02-07] MEDS: INSULIN REGULAR, HUMAN 100 UNIT/1 ML 3ML VIAL SQ SCH ×4 (08:00→20:20)
[2018-02-07] MEDS: INSULIN LISPRO 100 UNIT/1 ML 3ML VIAL SQ SCH ×3 (08:00→17:34)
--- NOTE | 2018-02-07 08:01 | NUR ---
Received pt in room sitting in chair. Pt is aox4 and able to verbalize needs. Denies any pain at this time. Breaths are even and unlabored. PICC line to left uuper ext is in place and dressing is dry and intact. Dressing to foot is dry and intact.
[2018-02-07] MEDS: EXENATIDE SQ SCH (08:39)
[2018-02-07] MEDS: LOSARTAN POTASSIUM 100 MG TAB PO SCH (08:39)
[2018-02-07] MEDS: HYDROCHLOROTHIAZIDE 25 MG TAB PO SCH (08:39)
[2018-02-07] MEDS: CLONIDINE HCL 0.1 MG TAB PO SCH ×2 (08:39→20:28)
[2018-02-07] MEDS: VANCOMYCIN 1GM/NS 250 ML 250 ML IV SCH ×2 (09:00→20:28)
--- NOTE | 2018-02-07 12:54 | Progress Note ---
DATE: February 07, 2018 SUBJECTIVE: No new complaints. PHYSICAL EXAMINATION GENERAL: A and O x3, NAD. HEENT: Normocephalic, atraumatic, anicteric. ABDOMEN: Soft, nontender, nondistended. RESPIRATORY: Symmetrical expansion. PSYCHIATRIC: Normal affect. EXTREMITIES: Dressing is clean, dry and intact. Wound seems to be responding well, responding off of IV antibiotics. ASSESSMENT: Diabetic foot complications. Cellulitis with concomitant septic arthrosis. PLAN: Proceed with current recommendations, local wound care, wound packing and IV antibiotics. Will continue to follow and monitor. Also, it is paramount that he is nonweightbearing. Job#: [id number]
--- NOTE | 2018-02-07 19:12 | NUR ---
Received patient awake, no complaints of pain at this time, right foot dressing intact. Call light within easy reach, will continue to monitor.
--- NOTE | 2018-02-07 19:12 | NUR ---
wound care teaching instructed to patient, at the bedside by dayshift.
--- NOTE | 2018-02-07 19:31 | NUR ---
Pt education done related to wound care with patient and spouse. Pt and spouse verbalized understanding.
[2018-02-07] MEDS: ATORVASTATIN 10 MG TAB PO SCH (20:28)
[2018-02-08 00:29] VITALS: BP 127/60
[2018-02-08] MEDS: CEFEPIME 2 GM/NS 0.9% 100 ML 100 ML IV SCH (04:00)
[2018-02-08] MEDS: HYDROCODONE/APAP 10MG-325MG TAB PO PRN ×2 (04:00→15:51)
[2018-02-08] MEDS ORDERED: NAPROXEN 250 MG TAB PO PRN (05:30)
[2018-02-08 05:45] VITALS: BP 157/70
--- NOTE | 2018-02-08 07:00 | NUR ---
SHIFT REPORT RECEIVED FROM NIGHT RN. PT DENIES NEEDS AT THIS TIME.
[2018-02-08 07:43] VITALS: BP 164/93
[2018-02-08] MEDS: VANCOMYCIN 1GM/NS 250 ML 250 ML IV SCH (08:13)
[2018-02-08] MEDS: CLONIDINE HCL 0.1 MG TAB PO SCH (08:13)
[2018-02-08] MEDS: HYDROCHLOROTHIAZIDE 25 MG TAB PO SCH (08:13)
[2018-02-08] MEDS: LOSARTAN POTASSIUM 100 MG TAB PO SCH (08:13)
[2018-02-08] MEDS: EXENATIDE SQ SCH (08:14)
[2018-02-08] MEDS: INSULIN LISPRO 100 UNIT/1 ML 3ML VIAL SQ SCH ×2 (08:15→12:00)
[2018-02-08] MEDS: INSULIN REGULAR, HUMAN 100 UNIT/1 ML 3ML VIAL SQ SCH ×2 (08:15→11:30)
[2018-02-08 09:00] VITALS: BP 163/94
--- NOTE | 2018-02-08 10:05 | NUR ---
Spoke to LANDON Boucher regarding appointment for IV abx. He stated that pt has an appointment on 02/09/18 at 2pm. Pt will follow up with Dr. Frankel's office for outpatient IV abx [facility] [address] [place] [address] [address] [place] [address] Appointment information was printed out and given to pt. Wound care teaching was provided by nursing. Pt told CM that he feels comfortable doing his own wound care.
[2018-02-08 12:02] VITALS: BP 156/87
--- NOTE | 2018-02-08 13:11 | Progress Note ---
DATE: February 08, 2018 SUBJECTIVE: The patient has no new complaints. Decrease in erythema, edema and drainage from the right foot. Has what appears to be scheduled followup with Dr. Frankel at infusion and also waiting for material for the same. PHYSICAL EXAMINATION GENERAL: A and O times 3. NAD. VITAL SIGNS: Stable. He is afebrile. HEENT: Normocephalic, atraumatic and anicteric. ABDOMEN: Soft, nontender and nondistended. PSYCHIATRIC: Normal affect. EXTREMITIES: Erythema and edema of the right foot improved significantly. Significant decrease in drainage as well. Packing in place. ASSESSMENT 1. Septic arthritis. 2. Concomitant pain. 3. Osteomyelitis. 4. Diabetes mellitus with diabetic ulceration. PLAN: Recommend continue with current recommendations of offloading and local wound care. Has set up outpatient wound care, as well as outpatient infusion per my understanding. At this point, waiting for discharge planning. Will be seen outpatient upon discharging. Job#: [id number]
[2018-02-08 16:24] VITALS: BP 161/89
== END 2018-02-08 16:45 | disposition home or self-care (01) | DRG 638 ==
LOC: ER 16:59 → ERHOLD 02-03 00:06 → MED/SURG2 02-03 18:02
PROVIDERS: ADMIT Internal Medicine; ATTEND Internal Medicine
PROC: 02HV33Z Insertion of Infusion Device into Superior Vena Cava, Percutaneous Approach (ICD-10-PCS; principal; 2018-02-03)
DX: E11.69 Type 2 diabetes mellitus with other specified complication (principal); M86.171 Other acute osteomyelitis, right ankle and foot; L03.115 Cellulitis of right lower limb; E78.5 Hyperlipidemia, unspecified; I10 Essential (primary) hypertension; Z83.3 Family history of diabetes mellitus; Z82.49 Family history of ischemic heart disease and other diseases of the circulatory system; E11.65 Type 2 diabetes mellitus with hyperglycemia; E11.42 Type 2 diabetes mellitus with diabetic polyneuropathy; E11.621 Type 2 diabetes mellitus with foot ulcer; E66.9 Obesity, unspecified; E11.628 Type 2 diabetes mellitus with other skin complications; E11.610 Type 2 diabetes mellitus with diabetic neuropathic arthropathy; M19.071 Primary osteoarthritis, right ankle and foot; Z79.4 Long term (current) use of insulin; Z68.36 Body mass index [BMI] 36.0-36.9, adult; L97.519 Non-pressure chronic ulcer of other part of right foot with unspecified severity; B95.1 Streptococcus, group B, as the cause of diseases classified elsewhere
CPT/HCPCS: 36415; 36569; 71045; 80053; 80202; 81001; 82948; 83036; 83605; 83735; 85025; 85610; 85651; 85730; 86140; 87040; 87071; 87205; 96372; 99284; J2543; J3370; J7050

== ENCOUNTER 2018-11-27 14:41 | Emergency (ER) | payer BC ==
[~2018-11-27] VITALS: Ht 185.4 cm; Wt 127.0 kg
[~2018-11-27 14:41] MED LIST changes: +ATORVASTATIN CA10 MG PO; +NOVOLOG100 UNITS1 SQ; +TOUJEO SOLOSTAR SC; +VICTOZA 2-0.6 MG/0.1 SQ
[2018-11-27] MEDS ORDERED: HYDROCODONE/APAP 10MG-325MG TAB PO ONE (15:00)
[2018-11-27] MEDS ORDERED: HYDROCODONE/APAP 10MG-325MG TAB ONE (15:02)
== END 2018-11-27 15:48 | disposition home or self-care (01) ==
LOC: ER 14:41
DX: T63.431A Toxic effect of venom of caterpillars, accidental (unintentional), initial encounter (principal); I10 Essential (primary) hypertension
CPT/HCPCS: 99282

== ENCOUNTER 2020-03-06 10:06 | Emergency (ER) | payer BC ==
[~2020-03-06] VITALS: Ht 185.4 cm; Wt 127.0 kg
[2020-03-06] MEDS ORDERED: GABAPENTIN300 MG PO (10:19)
[2020-03-06] MEDS ORDERED: LOSARTAN-HCTZ1 EAC1 PO (10:19)
[2020-03-06] MEDS ORDERED: CLONIDINE HCL0.2 MG PO (10:19)
== END 2020-03-06 11:10 | disposition home or self-care (01) ==
LOC: ER 10:07
DX: I10 Essential (primary) hypertension (principal); E11.9 Type 2 diabetes mellitus without complications; E78.5 Hyperlipidemia, unspecified; E78.00 Pure hypercholesterolemia, unspecified
CPT/HCPCS: 99282

== ENCOUNTER 2022-12-21 11:58 | Inpatient (IN) | payer MEDICARE, OTHER ==
[~2022-12-21] VITALS: Ht 185.4 cm; Wt 127.0 kg
[~2022-12-21 11:58] MED LIST changes: -METFORMIN HCL500 MG PO; -TRESIBA100 UNIT/1 PO
[2022-12-21] MEDS ORDERED: ACETAMINOPHEN 325 MG TAB PO PRN (12:45)
[2022-12-21 14:46] LABS: BASOPHILS % 0.4 % (0.0-1.0); EOSINOPHILS # (AUTO) 0.1 (0.0-0.4); HEMATOCRIT 39.8 % (38.2-49.6); HEMOGLOBIN 13.3 g/dL (14.0-18.0); LYMPHOCYTES # (AUTO) 1.8 (1.0-3.2); LYMPHOCYTES % 18.7 % (18.0-39.1); MEAN CORPUSCULAR HEMOGLOBIN 27.9 pg (28-32); MEAN CORPUSCULAR HGB CONC 33.4 g/dL (31-35); MEAN CORPUSCULAR VOLUME 83.4 fL (81-99); MONOCYTES # (AUTO) 0.5 (0.2-0.8); MONOCYTES % 5.7 % (4.4-11.3); NEUTROPHILS % 73.9 % (38.7-80.0); PLATELET COUNT 423 x10e3/uL (140-360); RED BLOOD COUNT 4.77 x10e6/uL (4.3-5.7); RED CELL DISTRIBUTION WIDTH 12.9 % (11.7-14.4); WHITE BLOOD COUNT 9.41 x10e3/uL (4.8-10.8)
[2022-12-21 15:00] VITALS: BP 160/80; PULSE 79; RESP 18; TEMP 97.9; O2SAT 100
[2022-12-21] MEDS: Vancomycin IV 1 GM in SODIUM CHLORIDE 0.9% 250ML 250 ML IV SCH (15:06)
[2022-12-21 15:12] LABS: ALBUMIN 3.2 g/dL (3.5-5.0); ALBUMIN/GLOBULIN RATIO 0.8 (0.8-2.0); ANION GAP 13.7 mmol/L (8-16); CALCIUM 9.4 mg/dL (8.4-10.2); CREATININE, SERUM 1.33 mg/dL (0.72-1.25); POTASSIUM 4.7 mmol/L (3.5-5.1)
[2022-12-21 16:00] VITALS: BP 160/80; PULSE 79; RESP 19; TEMP 97.9; O2SAT 100
[2022-12-21] MEDS ORDERED: DEXTROSE 50% SYRINGE 50 ML IV PRN (16:00)
[2022-12-21] MEDS ORDERED: MELATONIN 3 MG TAB PO PRN (16:00)
[2022-12-21] MEDS ORDERED: METOPROLOL TARTRATE INJ 1 MG/ML VIAL IV PRN (16:00)
[2022-12-21] MEDS ORDERED: DOCUSATE SODIUM 100 MG CAP PO PRN (16:00)
[2022-12-21] MEDS ORDERED: ALBUTEROL/IPRATROPIUM 3 ML NEB NEB PRN (16:00)
[2022-12-21] MEDS ORDERED: SIMETHICONE 80 MG CHEW PO PRN (16:00)
[2022-12-21 16:05] LABS: CHOL/HDL RATIO 3.7 (3.9-4.7)
[2022-12-21 16:15] VITALS: BP 160/80; PULSE 79; RESP 18; TEMP 97.9; O2SAT 100
[2022-12-21] MEDS: INSULIN LISPRO 100 UNIT/1 ML 3ML VIAL SQ SCH (17:28)
[2022-12-21] MEDS ORDERED: TRESIBA100 UNIT/1 PO (18:10)
[2022-12-21] MEDS ORDERED: METFORMIN HCL500 MG PO (18:10)
[2022-12-21 20:00] VITALS: BP 141/70; PULSE 78; RESP 18; TEMP 97.4; O2SAT 99
[2022-12-21] MEDS: INSULIN GLARGINE 100 UNITS/ML VIAL SQ SCH (20:40)
[2022-12-21] MEDS ORDERED: INSULIN GLARGINE SC SCH (21:00)
[2022-12-21] MEDS: CLONIDINE HCL 0.1 MG TAB PO SCH (21:14)
[2022-12-21 22:00] VITALS: BP 141/70; PULSE 78; RESP 18; TEMP 97.4; O2SAT 99
[2022-12-22] VITALS (7 sets, daily range): BP systolic 146–175; BP diastolic 73–90; PULSE 66–78; RESP 17–18; TEMP 97.2–98.9; O2SAT 98–100
[2022-12-22] MEDS: Vancomycin IV 1 GM in SODIUM CHLORIDE 0.9% 250ML 250 ML IV SCH ×2 (01:55→12:41)
[2022-12-22 05:46] LABS: BASOPHILS % 0.5 % (0.0-1.0); EOSINOPHILS # (AUTO) 0.3 (0.0-0.4); EOSINOPHILS % 4.1 % (0.0-6.0); HEMATOCRIT 36.8 % (38.2-49.6); HEMOGLOBIN 12.2 g/dL (14.0-18.0); LYMPHOCYTES % 12.6 % (18.0-39.1); MEAN CORPUSCULAR HEMOGLOBIN 27.9 pg (28-32); MEAN CORPUSCULAR HGB CONC 33.2 g/dL (31-35); MONOCYTES # (AUTO) 0.6 (0.2-0.8); MONOCYTES % 7.7 % (4.4-11.3); NEUTROPHILS # (AUTO) 5.9 (2.1-6.9); NEUTROPHILS % 74.7 % (38.7-80.0); PLATELET COUNT 368 x10e3/uL (140-360); RED BLOOD COUNT 4.38 x10e6/uL (4.3-5.7); RED CELL DISTRIBUTION WIDTH 13.1 % (11.7-14.4); WHITE BLOOD COUNT 7.88 x10e3/uL (4.8-10.8)
[2022-12-22 06:21] LABS: ANION GAP 9.3 mmol/L (8-16); CALCIUM 8.8 mg/dL (8.4-10.2); CREATININE, SERUM 1.1 mg/dL (0.72-1.25); POTASSIUM 4.3 mmol/L (3.5-5.1)
[2022-12-22] MEDS ORDERED: ATORVASTATIN 10 MG TAB PO SCH (09:00)
[2022-12-22] MEDS ORDERED: HYDROCHLOROTHIAZIDE 25 MG TAB PO SCH (09:00)
[2022-12-22] MEDS: GABAPENTIN 300 MG CAP PO SCH (09:38)
[2022-12-22] MEDS: CLONIDINE HCL 0.1 MG TAB PO SCH ×2 (09:39→21:23)
[2022-12-22] MEDS: LOSARTAN POTASSIUM 100 MG TAB PO SCH (09:39)
[2022-12-22] MEDS: ATORVASTATIN 40 MG TAB PO SCH (09:39)
[2022-12-22] MEDS: HYDROCHLOROTHIAZIDE 25 MG TAB PO SCH (09:39)
[2022-12-22] MEDS: INSULIN LISPRO 100 UNIT/1 ML 3ML VIAL SQ SCH ×3 (09:42→17:32)
[2022-12-22] MEDS ORDERED: HYDRALAZINE HCL 20 MG/ML VIAL IV PRN (13:30)
[2022-12-22] MEDS: LABETALOL HCL 200 MG TAB PO SCH (17:00)
[2022-12-22] MEDS: INSULIN GLARGINE 100 UNITS/ML VIAL SQ SCH (21:19)
[2022-12-22] MEDS: HYDROCODONE/APAP 5MG-325MG TAB PO PRN (21:25)
[2022-12-23 00:47] VITALS: BP 137/70; PULSE 71; RESP 18; TEMP 97.8; O2SAT 98
[2022-12-23] MEDS: Vancomycin IV 1 GM in SODIUM CHLORIDE 0.9% 250ML 250 ML IV SCH ×2 (01:24→15:25)
[2022-12-23 05:10] VITALS: BP 124/69; PULSE 66; RESP 18; TEMP 97.7; O2SAT 100
[2022-12-23 05:56] LABS: BASOPHILS # (AUTO) 0.1 (0.0-0.1); BASOPHILS % 0.7 % (0.0-1.0); EOSINOPHILS # (AUTO) 0.4 (0.0-0.4); HEMATOCRIT 36.8 % (38.2-49.6); HEMOGLOBIN 11.9 g/dL (14.0-18.0); LYMPHOCYTES # (AUTO) 1.1 (1.0-3.2); LYMPHOCYTES % 14.4 % (18.0-39.1); MEAN CORPUSCULAR HEMOGLOBIN 28.1 pg (28-32); MEAN CORPUSCULAR HGB CONC 32.3 g/dL (31-35); MEAN CORPUSCULAR VOLUME 86.8 fL (81-99); MONOCYTES # (AUTO) 0.6 (0.2-0.8); MONOCYTES % 7.5 % (4.4-11.3); NEUTROPHILS # (AUTO) 5.3 (2.1-6.9); NEUTROPHILS % 71.9 % (38.7-80.0); PLATELET COUNT 345 x10e3/uL (140-360); RED BLOOD COUNT 4.24 x10e6/uL (4.3-5.7); RED CELL DISTRIBUTION WIDTH 13.2 % (11.7-14.4); WHITE BLOOD COUNT 7.36 x10e3/uL (4.8-10.8)
[2022-12-23 06:44] LABS: ANION GAP 10.7 mmol/L (8-16); CALCIUM 8.4 mg/dL (8.4-10.2); CREATININE, SERUM 1.44 mg/dL (0.72-1.25); POTASSIUM 4.7 mmol/L (3.5-5.1)
[2022-12-23 08:00] VITALS: BP 128/73; PULSE 63; RESP 17; TEMP 98.6; O2SAT 98
[2022-12-23 08:25] VITALS: BP 128/73; PULSE 63; RESP 17; TEMP 98.6; O2SAT 98
[2022-12-23] MEDS: INSULIN LISPRO 100 UNIT/1 ML 3ML VIAL SQ SCH ×3 (08:55→17:17)
[2022-12-23] MEDS: LABETALOL HCL 200 MG TAB PO SCH ×2 (09:00→17:00)
[2022-12-23] MEDS: CLONIDINE HCL 0.1 MG TAB PO SCH ×2 (09:00→22:43)
[2022-12-23] MEDS ORDERED: ONDANSETRON HCL INJ 2MG/ML 2ML 2 MG/ML VIAL ONE (11:49)
[2022-12-23] MEDS ORDERED: LIDOCAINE HCL 2% LOCAL INJ 5 ML SDV VIAL INJ ONE (11:49)
[2022-12-23] MEDS ORDERED: KETOROLAC TROMETHAMINE 30 MG/ML VIAL ONE (11:49)
[2022-12-23] MEDS ORDERED: PROPOFOL IV EMULSION 10 MG/ML 20 ML VIAL ONE (11:49)
[2022-12-23] MEDS ORDERED: SEVOFLURANE INHAL SOLN 250 ML PEN BTL ONE (11:49)
[2022-12-23] MEDS ORDERED: Vancomycin IV 1 GM VIAL ONE (12:03)
[2022-12-23] MEDS ORDERED: MIDAZOLAM HCL 2 MG/2 ML VIAL ONE (12:19)
[2022-12-23] MEDS ORDERED: FENTANYL CITRATE/PF 100MCG/2 ML INJ ONE (12:19)
[2022-12-23] MEDS ORDERED: MUPIROCIN 2% OINT 22 GM TUBE ONE (12:59)
[2022-12-23 13:38] VITALS: BP 148/79; PULSE 75; RESP 17; TEMP 97.8; O2SAT 100
[2022-12-23] MEDS: GABAPENTIN 300 MG CAP PO SCH (14:20)
[2022-12-23] MEDS: ATORVASTATIN 40 MG TAB PO SCH (14:20)
[2022-12-23] MEDS: LOSARTAN POTASSIUM 100 MG TAB PO SCH (14:20)
[2022-12-23] MEDS: HYDROCHLOROTHIAZIDE 25 MG TAB PO SCH (14:20)
[2022-12-23] MEDS: HYDROCODONE/APAP 5MG-325MG TAB PO PRN ×2 (17:19→22:43)
[2022-12-23 20:00] VITALS: BP 132/79; PULSE 70; RESP 18; TEMP 98.8; O2SAT 97
[2022-12-23] MEDS: INSULIN GLARGINE 100 UNITS/ML VIAL SQ SCH (22:45)
[2022-12-24] VITALS (8 sets, daily range): BP systolic 106–150; BP diastolic 60–74; PULSE 60–66; RESP 18; TEMP 98–98.3; O2SAT 97–99
[2022-12-24] MEDS: Vancomycin IV 1 GM in SODIUM CHLORIDE 0.9% 250ML 250 ML IV SCH ×2 (03:21→16:17)
[2022-12-24] MEDS: LABETALOL HCL 200 MG TAB PO SCH ×2 (08:46→16:15)
[2022-12-24] MEDS: GABAPENTIN 300 MG CAP PO SCH (08:46)
[2022-12-24] MEDS: CLONIDINE HCL 0.1 MG TAB PO SCH ×2 (08:47→21:00)
[2022-12-24] MEDS: LOSARTAN POTASSIUM 100 MG TAB PO SCH (08:47)
[2022-12-24] MEDS: ATORVASTATIN 40 MG TAB PO SCH (08:47)
[2022-12-24] MEDS: HYDROCHLOROTHIAZIDE 25 MG TAB PO SCH (08:48)
[2022-12-24] MEDS: INSULIN LISPRO 100 UNIT/1 ML 3ML VIAL SQ SCH ×5 (10:46→21:00)
[2022-12-24 14:10] LABS: FREE T4 (FREE THYROXINE) 1.15 ng/dL (0.8-1.8); THYROID STIMULATING HORMONE 0.837 uIU/mL (0.350-4.940)
[2022-12-24] MEDS ORDERED: INSULIN GLARGINE 100 UNITS/ML VIAL SQ SCH (21:00)
[2022-12-24] MEDS: Morphine 2mg Syringe 2 MG/ML SYR IV PRN (21:16)
[2022-12-25] VITALS (8 sets, daily range): BP systolic 112–146; BP diastolic 65–77; PULSE 62–65; RESP 17–20; TEMP 97.7–98.5; O2SAT 96–100
[2022-12-25] MEDS ORDERED: Vancomycin IV 1 GM VIAL ONE (03:51)
[2022-12-25] MEDS: Vancomycin IV 1 GM in SODIUM CHLORIDE 0.9% 250ML 250 ML IV SCH (03:54)
[2022-12-25] MEDS: Morphine 2mg Syringe 2 MG/ML SYR IV PRN ×2 (04:05→19:42)
[2022-12-25 06:23] LABS: ANION GAP 12.2 mmol/L (8-16); CALCIUM 8.3 mg/dL (8.4-10.2); CREATININE, SERUM 1.65 mg/dL (0.72-1.25); POTASSIUM 4.2 mmol/L (3.5-5.1)
[2022-12-25] MEDS: INSULIN LISPRO 100 UNIT/1 ML 3ML VIAL SQ SCH ×7 (08:58→20:22)
[2022-12-25] MEDS: GABAPENTIN 300 MG CAP PO SCH (08:59)
[2022-12-25] MEDS: ATORVASTATIN 40 MG TAB PO SCH (08:59)
[2022-12-25] MEDS: HYDROCHLOROTHIAZIDE 25 MG TAB PO SCH (08:59)
[2022-12-25] MEDS: CLONIDINE HCL 0.1 MG TAB PO SCH ×2 (09:00→20:20)
[2022-12-25] MEDS: LABETALOL HCL 200 MG TAB PO SCH ×2 (09:00→17:00)
[2022-12-25] MEDS: LOSARTAN POTASSIUM 100 MG TAB PO SCH (09:00)
[2022-12-25] MEDS ORDERED: INSULIN GLARGINE 100 UNITS/ML VIAL SQ SCH (21:00)
[2022-12-26] VITALS (8 sets, daily range): BP systolic 129–155; BP diastolic 63–75; PULSE 61–66; RESP 17–23; TEMP 97.4–98.4; O2SAT 96–100
[2022-12-26] MEDS: CLONIDINE HCL 0.1 MG TAB PO SCH ×2 (09:00→21:15)
[2022-12-26] MEDS: CEFTRIAXONE 2 GM in SODIUM CHLORIDE 0.9% 100 ML IV SCH (09:04)
[2022-12-26] MEDS: ATORVASTATIN 40 MG TAB PO SCH (09:05)
[2022-12-26] MEDS: FLUCONAZOLE 100 MG TAB PO SCH (09:05)
[2022-12-26] MEDS: HYDROCHLOROTHIAZIDE 25 MG TAB PO SCH (09:05)
[2022-12-26] MEDS: GABAPENTIN 300 MG CAP PO SCH (09:05)
[2022-12-26] MEDS: INSULIN LISPRO 100 UNIT/1 ML 3ML VIAL SQ SCH ×7 (09:06→21:00)
[2022-12-26] MEDS: LABETALOL HCL 200 MG TAB PO SCH ×2 (09:07→16:50)
[2022-12-26 09:50] LABS: CALCIUM 8.7 mg/dL (8.4-10.2); CREATININE, SERUM 1.35 mg/dL (0.72-1.25)
[2022-12-26] MEDS: Morphine 2mg Syringe 2 MG/ML SYR IV PRN (18:44)
[2022-12-26] MEDS: INSULIN GLARGINE 100 UNITS/ML VIAL SQ SCH (21:32)
[2022-12-27 08:25] VITALS: BP 155/78; PULSE 59; RESP 18; TEMP 97.9; O2SAT 99
[2022-12-27 08:40] VITALS: BP 155/78; PULSE 59; RESP 18; TEMP 97.9; O2SAT 99
[2022-12-27] MEDS: CEFTRIAXONE 2 GM in SODIUM CHLORIDE 0.9% 100 ML IV SCH (08:40)
[2022-12-27] MEDS: HYDROCHLOROTHIAZIDE 25 MG TAB PO SCH (08:41)
[2022-12-27] MEDS: ATORVASTATIN 40 MG TAB PO SCH (08:41)
[2022-12-27] MEDS: FLUCONAZOLE 100 MG TAB PO SCH (08:41)
[2022-12-27] MEDS: GABAPENTIN 300 MG CAP PO SCH (08:41)
[2022-12-27] MEDS: LABETALOL HCL 200 MG TAB PO SCH ×2 (08:42→16:56)
[2022-12-27] MEDS: CLONIDINE HCL 0.1 MG TAB PO SCH ×2 (08:42→20:57)
[2022-12-27] MEDS: INSULIN LISPRO 100 UNIT/1 ML 3ML VIAL SQ SCH ×7 (08:47→21:00)
[2022-12-27 12:22] VITALS: BP 162/80; PULSE 58; RESP 18; TEMP 97.9; O2SAT 100
[2022-12-27 16:21] VITALS: BP 120/71; PULSE 60; RESP 20; TEMP 97.6; O2SAT 97
[2022-12-27 20:00] VITALS: BP 140/72; PULSE 60; RESP 20; TEMP 97.8; O2SAT 94
[2022-12-27] MEDS: Morphine 2mg Syringe 2 MG/ML SYR IV PRN (20:56)
[2022-12-27 21:00] VITALS: BP 140/72; PULSE 60; RESP 20; TEMP 97.8; O2SAT 100
[2022-12-27] MEDS: INSULIN GLARGINE 100 UNITS/ML VIAL SQ SCH (21:07)
[2022-12-28] VITALS: BP 159/68; PULSE 63; RESP 20; TEMP 97.3; O2SAT 100
[2022-12-28 04:00] VITALS: BP 165/80; PULSE 57; RESP 20; TEMP 97.7; O2SAT 100
[2022-12-28 06:12] LABS: BASOPHILS # (AUTO) 0.1 (0.0-0.1); BASOPHILS % 0.7 % (0.0-1.0); EOSINOPHILS # (AUTO) 0.4 (0.0-0.4); EOSINOPHILS % 5.5 % (0.0-6.0); HEMATOCRIT 37.2 % (38.2-49.6); HEMOGLOBIN 11.9 g/dL (14.0-18.0); LYMPHOCYTES # (AUTO) 1.5 (1.0-3.2); LYMPHOCYTES % 19.9 % (18.0-39.1); MEAN CORPUSCULAR HEMOGLOBIN 27.6 pg (28-32); MEAN CORPUSCULAR VOLUME 86.3 fL (81-99); MONOCYTES # (AUTO) 0.4 (0.2-0.8); MONOCYTES % 5.4 % (4.4-11.3); NEUTROPHILS # (AUTO) 5.2 (2.1-6.9); NEUTROPHILS % 67.8 % (38.7-80.0); PLATELET COUNT 365 x10e3/uL (140-360); RED BLOOD COUNT 4.31 x10e6/uL (4.3-5.7); RED CELL DISTRIBUTION WIDTH 13.1 % (11.7-14.4)
[2022-12-28 06:37] LABS: ANION GAP 12.6 mmol/L (8-16); CALCIUM 8.8 mg/dL (8.4-10.2); CREATININE, SERUM 1.29 mg/dL (0.72-1.25); POTASSIUM 4.6 mmol/L (3.5-5.1)
[2022-12-28 08:29] VITALS: BP 173/86; PULSE 60; RESP 16; TEMP 97.7; O2SAT 99
[2022-12-28] MEDS: LABETALOL HCL 200 MG TAB PO SCH (08:33)
[2022-12-28] MEDS: CLONIDINE HCL 0.1 MG TAB PO SCH (08:33)
[2022-12-28] MEDS: CEFTRIAXONE 2 GM in SODIUM CHLORIDE 0.9% 100 ML IV SCH (08:33)
[2022-12-28] MEDS: FLUCONAZOLE 100 MG TAB PO SCH (08:33)
[2022-12-28] MEDS: GABAPENTIN 300 MG CAP PO SCH (08:34)
[2022-12-28] MEDS: HYDROCHLOROTHIAZIDE 25 MG TAB PO SCH (08:34)
[2022-12-28] MEDS: ATORVASTATIN 40 MG TAB PO SCH (08:34)
[2022-12-28] MEDS: INSULIN LISPRO 100 UNIT/1 ML 3ML VIAL SQ SCH ×4 (08:39→11:32)
[2022-12-28 08:51] VITALS: BP 173/86; PULSE 60; RESP 16; TEMP 97.7; O2SAT 99
[2022-12-28 12:00] VITALS: BP 187/82; PULSE 58; RESP 16; TEMP 98; O2SAT 100
[2022-12-28] MEDS ORDERED: ESIDRIX25 MG PO (12:34)
[2022-12-28] MEDS ORDERED: LABETALOL HCL200 MG PO (12:34)
[2022-12-28] MEDS ORDERED: Insulin Lispro SQ (12:34)
[2022-12-28] MEDS ORDERED: Insulin Glargine SQ (12:34)
[2022-12-28] MEDS ORDERED: INSULIN LISPRO 100 UNIT/1 ML 3ML VIAL SQ SCH (17:00)
[2022-12-28] MEDS ORDERED: INSULIN GLARGINE 100 UNITS/ML VIAL SQ SCH (21:00)
== END 2022-12-28 16:07 | disposition home or self-care (01) | DRG 617 ==
LOC: MED/SURG3 12:20
PROVIDERS: ADMIT Internal Medicine; ATTEND Internal Medicine
PROC: 3E0102A Introduction of Anti-Infective Envelope into Subcutaneous Tissue, Open Approach (ICD-10-PCS; 2022-12-23)
PROC: 0Y6U0Z0 Detachment at Left 3rd Toe, Complete, Open Approach (ICD-10-PCS; principal; 2022-12-23 12:11)
PROC: 02HV33Z Insertion of Infusion Device into Superior Vena Cava, Percutaneous Approach (ICD-10-PCS; 2022-12-24)
PROC: B548ZZA Ultrasonography of Superior Vena Cava, Guidance (ICD-10-PCS; 2022-12-24)
DX: E11.621 Type 2 diabetes mellitus with foot ulcer (principal); E87.1 Hypo-osmolality and hyponatremia; M86.172 Other acute osteomyelitis, left ankle and foot; L97.528 Non-pressure chronic ulcer of other part of left foot with other specified severity; L97.518 Non-pressure chronic ulcer of other part of right foot with other specified severity; L02.612 Cutaneous abscess of left foot; E11.69 Type 2 diabetes mellitus with other specified complication; E11.51 Type 2 diabetes mellitus with diabetic peripheral angiopathy without gangrene; I12.9 Hypertensive chronic kidney disease with stage 1 through stage 4 chronic kidney disease, or unspecified chronic kidney disease; E78.5 Hyperlipidemia, unspecified; N18.9 Chronic kidney disease, unspecified; E11.22 Type 2 diabetes mellitus with diabetic chronic kidney disease; E11.65 Type 2 diabetes mellitus with hyperglycemia; Z83.3 Family history of diabetes mellitus; Z79.899 Other long term (current) drug therapy; Z79.890 Hormone replacement therapy; Z86.718 Personal history of other venous thrombosis and embolism; Z20.822 Contact with and (suspected) exposure to COVID-19
CPT/HCPCS: 36415; 36569; 71045; 74470; 80048; 80053; 80061; 80202; 82948; 83036; 84134; 84439; 84443; 85025; 86140; 87040; 87071; 87075; 87205; 88304; 88305; 88311; 93306; 93925; 97606; 99252; C1713; J0696; J1815; J1885; J2001; J2250; J2270; J2405; J2543; J7050; U0002

== ENCOUNTER → 2022-12-21 | Outpatient (REF) | payer OTHER ==
[~2022-12-21] MED LIST changes: +CLONIDINE HCL0.2 MG PO; +GABAPENTIN300 MG PO; +LOSARTAN-HCTZ1 EAC1 PO; +METFORMIN HCL500 MG PO; +TRESIBA100 UNIT/1 PO
== END ==
LOC: MRI 12:17
PROVIDERS: ATTEND Podiatrist Foot & Ankle Surgery
DX: L97.502 Non-pressure chronic ulcer of other part of unspecified foot with fat layer exposed (principal)
CPT/HCPCS: 36415; 82948

== ENCOUNTER 2023-01-14 08:07 | Outpatient (RCR) | payer MEDICARE ==
[~2023-01-14 08:07] MED LIST changes: +BALSAM PERU/CASTOR OIL 60 GM OINT...G. TP ONE; +ESIDRIX25 MG PO; +Insulin Glargine SQ; +Insulin Lispro SQ; +LABETALOL HCL200 MG PO; +METFORMIN HCL500 MG PO; +TRESIBA100 UNIT/1 PO
== END 2023-01-20 ==
LOC: WCC 08:07
PROVIDERS: ATTEND Podiatrist Foot & Ankle Surgery
DX: E11.621 Type 2 diabetes mellitus with foot ulcer (principal); M86.172 Other acute osteomyelitis, left ankle and foot; L97.526 Non-pressure chronic ulcer of other part of left foot with bone involvement without evidence of necrosis; L97.518 Non-pressure chronic ulcer of other part of right foot with other specified severity

== ENCOUNTER → 2024-08-08 | Day surgery (SDC) | payer MEDICARE ==
[~2024-08-08] MED LIST changes: +ACETAMINOPHEN 1000 MG/100 ML 100 ML IV ONE; -BALSAM PERU/CASTOR OIL 60 GM OINT...G. TP ONE; +BUPIVACAINE 0.5%/EPI 30 ML SDV INJ ONE; +COREG3.125 MG PO; +DEXAMETHASONE SOD PHOS INJ 4 MG/ML SDV ONE; +EPHEDRINE SULFATE INJ 50 MG/ML VIAL ONE; +FAMOTIDINE20 MG PO; +FENTANYL CITRATE/PF 100MCG/2 ML INJ ONE; +JARDIANCE25 MG PO; +KETOROLAC TROMETHAMINE 30 MG/ML VIAL ONE; +LACTATED RINGER'S 1,000 ML ONE; +LIDOCAINE HCL 2% LOCAL INJ 5 ML SDV VIAL INJ ONE; +MIDAZOLAM HCL 2 MG/2 ML VIAL ONE; +MOUNJARO5 MG/0.5 M SC; +NIFEDIPINE ER30 M1 PO; +ONDANSETRON HCL INJ 2MG/ML 2ML 2 MG/ML VIAL ONE; +PROPOFOL IV EMULSION 10 MG/ML 20 ML VIAL ONE; +SEVOFLURANE INHAL SOLN 250 ML PEN BTL ONE; +SODIUM CHLORIDE 0.9% INJ 10 ML VIAL ONE; +TRESIBA100 UNIT/1 SC
[2024-08-08] MEDS: LACTATED RINGER'S 1,000 ML ONE (10:28)
[2024-08-08 14:45] VITALS: BP 138/85; PULSE 67; RESP 18; O2SAT 98
== END | disposition home or self-care (01) ==
LOC: OR 09:46
PROVIDERS: ATTEND Podiatrist Foot & Ankle Surgery
DX: M21.271 Flexion deformity, right ankle and toes (principal); M21.6X1 Other acquired deformities of right foot; E11.621 Type 2 diabetes mellitus with foot ulcer; L97.519 Non-pressure chronic ulcer of other part of right foot with unspecified severity; M24.574 Contracture, right foot; I10 Essential (primary) hypertension; K21.9 Gastro-esophageal reflux disease without esophagitis; E66.9 Obesity, unspecified; Z01.810 Encounter for preprocedural cardiovascular examination; Z79.84 Long term (current) use of oral hypoglycemic drugs; Z79.85 Long-term (current) use of injectable non-insulin antidiabetic drugs; Z79.4 Long term (current) use of insulin; Z79.899 Other long term (current) drug therapy; Z68.35 Body mass index [BMI] 35.0-35.9, adult
CPT/HCPCS: 14040; 27687; 28308; 36415; 82948; 87071; 87075; 87186; 87205; 93005; C1713 ×2; C1762; J0131; J0690; J1100; J1885; J2003; J2250; J2405; J2704; J3010; J7121